=== PATIENT | female | born 1980 | race Caucasian/White ===

== ENCOUNTER 2017-06-26 20:19 | Emergency (ER) | payer OTHER ==
[~2017-06-26] VITALS: Ht 175.3 cm; Wt 58.1 kg
[2017-06-26 21:48] LABS: Basophils # (auto) 0.1 uL; Basophils % (auto) 2.4 % (0.0-2.0); Eosinophils # (auto) 0 uL; Eosinophils % (auto) 1.2 % (0.0-7.0); Hematocrit 36.5 % (36.0-46.0); Lymphocytes # (auto) 1.9 uL; Lymphocytes % (auto) 47.6 % (10.0-50.0); Mean Corpuscular Hemoglobin 30.4 pg (28.0-32.0); Mean Corpuscular Hgb Conc. 32.9 g/dL (32.0-36.0); Mean Corpuscular Volume 92.4 fL (80.0-100.0); Monocytes # (auto) 0.5 uL; Monocytes % (auto) 12.8 % (0.0-12.0); Neutrophils # (auto) 1.4 uL; Platelet Count (auto) 265 10^3/uL (140-450); Red Blood Cells 3.95 10^6/uL (4.0-5.20); Red Cell Distribution Width 16.6 % (11.8-14.3)
[2017-06-26 22:07] LABS: Albumin 4.2 g/dL (3.4-5.0); BUN/Creatinine Ratio 11.8; Potassium 4.1 mmol/L (3.5-5.1)
[2017-06-26 22:08] LABS: Urine Bacteria NONE SEEN /hpf (None Seen); Urine Blood Negative /uL (Negative); Urine Mucus FEW (None Seen); Urine Pregnacy Test Negative (Negative); Urine Specific Gravity 1.015 (1.001-1.035); Urine WBC 1 /hpf (0 - 5)
[2017-06-26 22:09] LABS: Amphetamine Screen, Urine NEGATIVE (NEGATIVE); Barbiturate Scree,Urine NEGATIVE (NEGATIVE); Benzodiazephine Screen, Urine NEGATIVE (NEGATIVE); Cannabinoid Screen, Urine POSITIVE (NEGATIVE); Cocaine Screen, Urine NEGATIVE (NEGATIVE); Opiate Scree,Urine NEGATIVE (NEGATIVE); Phencyclidine Screen, Urine NEGATIVE (NEGATIVE)
[2017-06-26 22:11] LABS: Acetaminophen < 2.0 ug/mL (10-30); Salicylate 4.9 mg/dL (2.8-20.0)
[2017-06-26 22:12] LABS: Bilirubin, Total 0.4 mg/dL (0.2-1.0); Total Protein 8.6 g/dL (6.4-8.2)
[2017-06-27] MEDS ORDERED: SODIUM CHLORIDE 0.9% 1,000 ML IV ONE (01:45)
[2017-06-27] MEDS ORDERED: LORazepam 2MG/ML-1ML VIAL IV ONE (01:45)
[2017-06-27] MEDS ORDERED: LEVETIRACETAM INJ 750 MG in D5W 5% 100 ML IV ONE (01:45)
[2017-06-27] MEDS ORDERED: LEVETIRACETAM 500 MG/5ML INJ IV ONE (01:58)
[2017-06-27 03:15] VITALS: BP 125/80
== END 2017-06-27 03:26 | disposition home or self-care (01) ==
LOC: ER 20:19
DX: R56.9 Unspecified convulsions (principal); R51 Headache; Z91.19 Patient's noncompliance with other medical treatment and regimen
CPT/HCPCS: 36415; 70450; 71046; 80053; 80307; 80320; 80329; 81001; 81025; 85025; 93005; 96365; 96375; 99285; J1953; J2060; J7030; J7060

== ENCOUNTER 2017-11-08 14:49 | Emergency (ER) | payer OTHER ==
[~2017-11-08] VITALS: Ht 175.3 cm; Wt 56.2 kg
[2017-11-08] MEDS ORDERED: SODIUM CHLORIDE 0.9% 1,000 ML IV ONE (15:21)
[2017-11-08] MEDS ORDERED: LORazepam 2MG/ML-1ML VIAL IV ONE (15:30)
[2017-11-08] MEDS ORDERED: LEVETIRACETAM INJ 1,000 MG in D5W 5% 100 ML IV ONE (15:30)
[2017-11-08 16:13] LABS: Basophils # (auto) 0.1 uL; Basophils % (auto) 1.8 % (0.0-2.0); Eosinophils # (auto) 0 uL; Eosinophils % (auto) 1.2 % (0.0-7.0); Hematocrit 30.3 % (36.0-46.0); Hemoglobin 9.9 g/dL (12.2-16.2); Lymphocytes # (auto) 1.3 uL; Lymphocytes % (auto) 34.9 % (10.0-50.0); Mean Corpuscular Hemoglobin 28.5 pg (28.0-32.0); Mean Corpuscular Hgb Conc. 32.8 g/dL (32.0-36.0); Mean Corpuscular Volume 87.1 fL (80.0-100.0); Monocytes # (auto) 0.5 uL; Monocytes % (auto) 14.7 % (0.0-12.0); Neutrophils # (auto) 1.7 uL; Neutrophils % (auto) 47.4 % (37.0-80.0); Nucleated Red Blood Cells % 0.1 %; Platelet Count (auto) 136 10^3/uL (140-450); Red Blood Cells 3.47 10^6/uL (4.0-5.20); White Blood Cell 3.6 10^3/uL (4.4-10.8)
[2017-11-08 16:29] LABS: Red Cell Distribution Width 20.9 % (11.8-14.3)
[2017-11-08 16:49] LABS: Albumin 3.3 g/dL (3.4-5.0); BUN/Creatinine Ratio 9.6; Bilirubin, Total 0.4 mg/dL (0.2-1.0); Calcium 7.9 mg/dL (8.5-10.1); Magnesium 2.6 mg/dL (1.6-2.6); Potassium 3.4 mmol/L (3.5-5.1); Total Protein 7.3 g/dL (6.4-8.2)
[2017-11-08] MEDS ORDERED: ONDANSETRON HCL 4 MG/2 ML VIAL IV ONE (17:00)
[2017-11-08 17:05] LABS: Amphetamine Screen, Urine NEGATIVE (NEGATIVE); Barbiturate Scree,Urine NEGATIVE (NEGATIVE); Benzodiazephine Screen, Urine NEGATIVE (NEGATIVE); Cannabinoid Screen, Urine POSITIVE (NEGATIVE); Cocaine Screen, Urine NEGATIVE (NEGATIVE); Opiate Scree,Urine NEGATIVE (NEGATIVE); Phencyclidine Screen, Urine NEGATIVE (NEGATIVE)
[2017-11-08 17:07] LABS: Urine Bacteria NONE SEEN /hpf (None Seen); Urine Blood Negative /uL (Negative); Urine Hyaline Cast FEW /lpf (0 - 2); Urine Mucus FEW (None Seen); Urine Specific Gravity 1.017 (1.001-1.035); Urine WBC 5 /hpf (0 - 5)
[2017-11-08 17:22] VITALS: BP 113/63
[2017-11-08] MEDS ORDERED: KETOROLAC TROMETH 30 MG/ML 1ML VIAL IV ONE (17:45)
== END 2017-11-08 18:38 | disposition home or self-care (01) ==
LOC: ER 14:49
DX: G40.909 Epilepsy, unspecified, not intractable, without status epilepticus (principal); F10.10 Alcohol abuse, uncomplicated; F12.10 Cannabis abuse, uncomplicated; E87.6 Hypokalemia; E46 Unspecified protein-calorie malnutrition; D64.9 Anemia, unspecified
CPT/HCPCS: 36415; 80053; 80307; 81001; 83735; 85025; 96365; 96375; 99284; J1885; J1953; J2060; J7030; J7060

== ENCOUNTER 2018-09-30 10:49 | Inpatient (IN) | payer OTHER ==
[~2018-09-30] VITALS: Ht 175.3 cm; Wt 64.4 kg
[2018-09-30] VITALS (12 sets, daily range): BP systolic 99–124; BP diastolic 52–86
[2018-09-30 11:29] LABS: Hematocrit 14.2 % (36.0-46.0); Mean Corpuscular Volume 95.5 fL (80.0-100.0); Red Blood Cells 1.49 10^6/uL (4.0-5.20)
[2018-09-30 11:30] LABS: Mean Corpuscular Hemoglobin 30.2 pg (28.0-32.0); Mean Corpuscular Hgb Conc. 31.7 g/dL (32.0-36.0); Platelet Count (auto) 155 10^3/uL (140-450); Red Cell Distribution Width 18.5 % (11.8-14.3); White Blood Cell 12.1 10^3/uL (4.4-10.8)
[2018-09-30 11:39] LABS: Alanine Aminotransferase 65 U/L (13-56); Albumin 2.8 g/dL (3.4-5.0); Anion Gap 22 (5-15); Blood Urea Nitrogen 9 mg/dL (7-18); Calcium 8.1 mg/dL (8.5-10.1); Carbon Dioxide 15 mmol/L (21-32); Chloride 98 mmol/L (98-107); Glucose 102 mg/dL (74-106); Potassium 3.2 mmol/L (3.5-5.1); Sodium 135 mmol/L (136-145)
[2018-09-30 11:44] LABS: Alkaline Phosphatase 479 U/L (45-117); Aspartate Aminotransferase 270 U/L (15-37); BUN/Creatinine Ratio 8.3; Bilirubin, Total 2.5 mg/dL (0.2-1.0); GFR African American 73 mL/min; GFR Non-African American 60 mL/min
[2018-09-30 11:45] LABS: Hemoglobin 4.5 g/dL (12.2-16.2)
[2018-09-30 11:46] LABS: Basophils % (manual) 0 (0.0-2.0); Blast Cells 0; Eosinophils % (manual) 0 (0-7); Metamyelocytes % 0; Myelocytes % 0; Promyelocytes % 0; Reactive Lymphocytes 0
[2018-09-30] MEDS ORDERED: SODIUM CHLORIDE 0.9% 1,000 ML IV ONE (12:00)
[2018-09-30 12:45] LABS: Band Neutrophils % (manual) 4; Lymphocytes % (manual) 12 (10.0-50.0); Monocytes % (manual) 8 (0-12)
[2018-09-30] MEDS ORDERED: ACETAMINOPHEN 325 MG TAB PO ONE (13:45)
[2018-09-30 23:34] LABS: Basophils # (auto) 0 uL; Basophils % (auto) 0.3 % (0.0-2.0); Eosinophils # (auto) 0 uL; Eosinophils % (auto) 0.1 % (0.0-7.0); Hematocrit 25.8 % (36.0-46.0); Hemoglobin 8.8 g/dL (12.2-16.2); Lymphocytes % (auto) 9.4 % (10.0-50.0); Mean Corpuscular Hemoglobin 30.9 pg (28.0-32.0); Mean Corpuscular Hgb Conc. 34.2 g/dL (32.0-36.0); Mean Corpuscular Volume 90.2 fL (80.0-100.0); Monocytes # (auto) 0.8 uL; Monocytes % (auto) 7.3 % (0.0-12.0); Neutrophils # (auto) 8.5 uL; Neutrophils % (auto) 82.9 % (37.0-80.0); Nucleated Red Blood Cells % 0.1 %; Platelet Count (auto) 105 10^3/uL (140-450); Red Blood Cells 2.86 10^6/uL (4.0-5.20); White Blood Cell 10.2 10^3/uL (4.4-10.8)
[2018-10-01] MEDS ORDERED: MORPHINE SULF INJ 2 MG/ML SYRINGE 1ML IV PRN (00:30)
[2018-10-01] MEDS ORDERED: ONDANSETRON HCL 4 MG/2 ML VIAL IV PRN (00:30)
[2018-10-01] MEDS ORDERED: TEMAZEPAM 15 MG CAP PO PRN (00:30)
[2018-10-01] MEDS ORDERED: NITROGLYCERIN 0.4 MG SL TAB SL PRN (00:30)
[2018-10-01] MEDS ORDERED: POTASSIUM CHL 20 Meq TABLET PO ONE (00:30)
[2018-10-01 01:02] LABS: Albumin 2.7 g/dL (3.4-5.0); BUN/Creatinine Ratio 13.1; Calcium 7.4 mg/dL (8.5-10.1); Potassium 3.6 mmol/L (3.5-5.1)
[2018-10-01 01:05] LABS: Bilirubin, Total 4.8 mg/dL (0.2-1.0); Total Protein 5.7 g/dL (6.4-8.2)
[2018-10-01 02:40] VITALS: BP 125/68
--- NOTE | 2018-10-01 02:45 | NUR ---
Telemetry admit from ER TAHIR RITCHIE admitted to Telemetry unit after SBAR received. Patient oriented to Shannen Armenta RN primary RN, unit, room, bed, and unit policies regarding patient care and visiting hours. Patient now on continuous telemetry monitoring, tele box # 44 and telemetry reading on arrival to unit is ST on 100's. Patient weighed by bedscale and encouraged to call if they need something. All questions and concerns addressed, patient verbalized understanding, will continue to monitor Note: []
[2018-10-01] MEDS ORDERED: MEDR5TAB28 PO (02:54)
[2018-10-01] MEDS ORDERED: QUET200T3 PO (02:54)
--- NOTE | 2018-10-01 03:45 | NUR ---
Patient complained of itchiness, no SOB or skin rashes noted. Paged hospitalist, awaiting call back
[2018-10-01 04:08] VITALS: BP 125/68
[2018-10-01 05:00] VITALS: BP 115/72
--- NOTE | 2018-10-01 06:50 | NUR ---
Patient still complained of body itchiness, paged again hospitalist, awaiting call back
--- NOTE | 2018-10-01 07:05 | NUR ---
Hospitalist [place] called back, received new order at this time, read back and acknowledged it, will carry out order
[2018-10-01] MEDS ORDERED: diphenhdrAMINE HCL 25 MG CAP PO ONE (07:15)
[2018-10-01 07:27] LABS: INR 0.99 (0.9-1.15); Partial Thromboplastin Time 24.2 sec (23.64-32.05)
--- NOTE | 2018-10-01 07:48 | NUR ---
Opening Shift Note Assumed care of patient, patient comfortably sleeping. Breath sounds even and unlabored on room air. No S/S of distress/SOB noted. Bed at lowest locked position, bed rails up x2. Will continue to monitor for changes Q1hr and PRN.
[2018-10-01 08:00] VITALS: BP 120/73
[2018-10-01 08:35] VITALS: BP 120/73
--- NOTE | 2018-10-01 08:46 | NUR ---
I faxed clinical information to [facility] including ER notes, H&P, current vitals, labs, xrays and medication list.
--- NOTE | 2018-10-01 08:50 | NUR ---
Patient c/o lower abdominal pain/cramps. Will request pain medication from MD.
--- NOTE | 2018-10-01 09:00 | NUR ---
Provided patient with feminine pads and cleansing baby wipes.
[2018-10-01] MEDS ORDERED: FAMOTIDINE 20 MG TAB PO SCH (10:00)
[2018-10-01] MEDS ORDERED: IBUPROFEN 400 MG TAB PO PRN (11:30)
[2018-10-01 13:07] VITALS: BP 109/54
[2018-10-01 13:19] LABS: Hematocrit 20.9 % (36.0-46.0); Hemoglobin 7.2 g/dL (12.2-16.2)
[2018-10-01 14:32] LABS: Hepatitis A Ab IgM Negative; Hepatitis B Core IgM Negative; Hepatitis B Surface Antigen Negative (Negative); Hepatitis C Antibody Negative (Negative)
[2018-10-01] MEDS ORDERED: SODIUM CHLORIDE 0.9% 1,000 ML IV SCH (15:00)
--- NOTE | 2018-10-01 15:30 | NUR ---
Transfer order faxed to [facility].
--- NOTE | 2018-10-01 16:28 | NUR ---
I called [facility] [phone] to speak with therapeutic case manager, was on hold for more than 10 minutes, no one answered the phone.
--- NOTE | 2018-10-01 17:00 | NUR ---
vital signs; bp 110/62, hr 110, rr19, spo2 98% on room air. T 98.3 no c/o pain .
--- NOTE | 2018-10-01 18:20 | NUR ---
Patient states she tawanna not want to transfer to [place]. Notified Dr. Watson. will pass on to [facility] to notify [place].
--- NOTE | 2018-10-01 18:54 | NUR ---
IV removal PATIENT'S IV CAME OUT, PATIENT C/O LEAKING/ BLEEDING. PAIN AT IV SITE 05/13. IV DC'd with clean sterile technique, catheter fully intact. Pressure dressing applied to site. Patient tolerated well. Will pass on to ABBE[facility] SCHMIDT.
--- NOTE | 2018-10-01 19:29 | NUR ---
OPENING NOTES RECEIVED REPORT FROM DAY SHIFT NURSEGISSELLE. PT IS ALERT, AWAKE AND ORIENTATED X 4 WITH NO S/S OF DISTRESS NOR PAIN. NO S/S OF SOB. BED BRAKES ARE LOCKED AND CALL LIGHT IS WITH IN REACH. BED IS IN LOWEST POSITION AND SIDE RAILS ARE UP X 2. HOB IS 30 DEGREES. PT ASSUMED SHE WAS GOING TO BE DISCHARGED HOME. MADE PATIENT AWARE THAT THE PLAN WAS TO TRANSFER TO [place]. PT REFUSING TRANSFER. WILL MONITOR Q 1HR AND CALL VOICE WRITING REPORTER IN [place].
--- NOTE | 2018-10-01 19:51 | NUR ---
TRANSFER CALLED [facility] AND TOLD BY [facility] THAT AFTER PATIENT REFUSES TRANSFER, FURTHER STAY AT [facility] WILL NOT BE COVERED BY INSURANCE. INFORMED PT, PT VERBALIZED UNDERSTANDING. PT TOLD ME THAT SHE WANTS TO LEAVE. PT GETTING DRESSED AND TOOK TELE MONITOR OFF.
--- NOTE | 2018-10-01 20:33 | NUR ---
[facility] CALLED [facility] TO INFORM PT WANT TO LEAVE [facility] BUENO, TRANSFER MARKETING EXECUTIVE, INFORMED. FURNACE FIRER TO CALL ME BACK.
--- NOTE | 2018-10-01 20:53 | NUR ---
CALL BACK FROM [facility] GROVER, CAR REPAIRER FROM [facility], CALLED BACK AND INFORMED OF PATIENT'S DESIRE TO LEAVE, GROVER MADE AWARE AND INFORMED ME TO HAVE PATIENT FOLLOW UP WITH [facility] IN 3 DAYS. PT MADE OF AWARE OF FOLLOW UP APPT AT [facility]. PT MADE OF AWARE OF RISKS OF LEAVING THE HOSPITAL. VERIFIED THAT NO IV PRESENT AND TELE BOX REMOVED. PT SIGNED AMA.
--- NOTE | 2018-10-01 21:05 | NUR ---
OFF UNIT PT LEFT AMA AND OFF UNIT AT 2105.
== END 2018-10-01 21:03 | disposition left against medical advice (07) | DRG 760 ==
LOC: EDBD 10:49 → ER 10:49 → TELE 10:50 → TELE-CENTR 10-01 02:15
PROVIDERS: ADMIT Nurse Practitioner; ATTEND Internal Medicine
PROC: 30233N1 Transfusion of Nonautologous Red Blood Cells into Peripheral Vein, Percutaneous Approach (ICD-10-PCS; principal; 2018-09-30)
DX: D25.9 Leiomyoma of uterus, unspecified (principal); N17.0 Acute kidney failure with tubular necrosis; N92.1 Excessive and frequent menstruation with irregular cycle; D50.0 Iron deficiency anemia secondary to blood loss (chronic); E87.6 Hypokalemia; K76.0 Fatty (change of) liver, not elsewhere classified; R79.89 Other specified abnormal findings of blood chemistry; R00.0 Tachycardia, unspecified; Z82.49 Family history of ischemic heart disease and other diseases of the circulatory system; Z53.21 Procedure and treatment not carried out due to patient leaving prior to being seen by health care provider
CPT/HCPCS: 36415; 36430; 74176; 76705; 76856; 80053; 80074; 83735; 84484; 84702; 85007; 85014; 85018; 85025; 85027; 85610; 85730; 86850; 86900; 86901; 86920; 93005; 94761; 96360; 96361; 99291; G0378

== ENCOUNTER 2019-09-29 19:32 | Emergency (ER) | payer OTHER ==
[~2019-09-29] VITALS: Ht 175.3 cm; Wt 60.8 kg
[~2019-09-29 19:32] MED LIST: MEDR5TAB28 PO; QUET200T4 PO
[2019-09-29 20:08] VITALS: BP 156/93
== END 2019-09-29 23:30 | disposition left against medical advice (07) ==
LOC: ER 19:32
DX: R10.9 Unspecified abdominal pain (principal); Z53.21 Procedure and treatment not carried out due to patient leaving prior to being seen by health care provider

== ENCOUNTER 2019-10-07 13:15 | Inpatient (IN) | payer OTHER ==
[~2019-10-07] VITALS: Ht 175.3 cm; Wt 72.2 kg
[2019-10-07 13:47] LABS: Red Cell Distribution Width 15.9 % (11.8-14.3)
[2019-10-07 13:49] LABS: Hematocrit 34.5 % (36.0-46.0); Hemoglobin 11.2 g/dL (12.2-16.2); Mean Corpuscular Hemoglobin 33.9 pg (28.0-32.0); Mean Corpuscular Hgb Conc. 32.6 g/dL (32.0-36.0); Platelet Count (auto) 321 10^3/uL (140-450); Red Blood Cells 3.31 10^6/uL (4.0-5.20); White Blood Cell 17.2 10^3/uL (4.4-10.8)
[2019-10-07 13:52] LABS: Band Neutrophils % (manual) 0; Basophils % (manual) 0 (0.0-2.0); Blast Cells 0; Eosinophils % (manual) 0 (0-7); Metamyelocytes % 0; Promyelocytes % 0; Reactive Lymphocytes 0
[2019-10-07 14:08] LABS: Albumin 2.7 g/dL (3.4-5.0); BUN/Creatinine Ratio 6.8; Calcium 9.3 mg/dL (8.5-10.1)
[2019-10-07 14:18] LABS: Lymphocytes % (manual) 10 (10.0-50.0); Monocytes % (manual) 5 (0-12); Myelocytes % 1
[2019-10-07 14:29] LABS: Potassium 2.9 mmol/L (3.5-5.1)
[2019-10-07] MEDS ORDERED: POTASSIUM EFFERVESENT TAB 25 MEQ PO ONE (14:45)
[2019-10-07] MEDS ORDERED: levoFLOXacin 500MG 100 ML IV ONE (16:00)
[2019-10-07] MEDS ORDERED: MORPHINE SULF INJ 2 MG/ML SYRINGE 1ML IV PRN ×3 (16:45→23:45)
[2019-10-07] MEDS ORDERED: NITROGLYCERIN 0.4 MG SL TAB SL PRN ×2 (16:45→23:45)
[2019-10-07] MEDS ORDERED: POTASSIUM CHLORIDE 40 MEQ, LIDOCAINE 1% (LOCAL ANESTH.) 4 ML in SODIUM CHL 0.9% 100 ML IV ONE (16:45)
[2019-10-07] MEDS ORDERED: POTASSIUM CHL 20 Meq TABLET PO ONE (16:45)
[2019-10-07] MEDS ORDERED: QUET200T30 PO (17:17)
[2019-10-07] MEDS ORDERED: MULT-1018 PO (17:17)
[2019-10-07] MEDS ORDERED: FERR-7 PO (17:17)
[2019-10-07 21:22] VITALS: BP 118/64
--- NOTE | 2019-10-07 21:22 | NUR ---
Telemetry admit from ER Patient admitted to Telemetry unit. Patient oriented to primary RN, unit, room, bed, and unit policies regarding patient care and visiting hours. Patient now on continuous telemetry monitoring, tele box # 61 and telemetry reading on arrival to unit is sinus rhythm. Patient weighed by bedscale and encouraged to call if they need something. All questions and concerns addressed, patient verbalized understanding. Safety precautions maintained bed is in lowest position and locked, bed rails 2x. Call light and bedside table are within reach.
[2019-10-07 22:00] VITALS: BP 118/64
[2019-10-07] MEDS: SOD CHL 0.9%/ KCL 40MEQ 1,000 ML IV SCH (23:30)
[2019-10-07] MEDS ORDERED: DOXYCYCLINE 100MG/250ML 250 ML IV SCH (23:30)
[2019-10-07] MEDS ORDERED: HYDROcodone-ACET 5/325MG TAB PO PRN (23:45)
[2019-10-07] MEDS ORDERED: ALUM & MAG HYDROX-SIMETH LIQ(MAALOX) 30 ML PO PRN (23:45)
[2019-10-07] MEDS ORDERED: ONDANSETRON HCL 4 MG/2 ML VIAL IV PRN (23:45)
[2019-10-07] MEDS ORDERED: LORazepam 0.5 MG TAB PO PRN (23:45)
[2019-10-07] MEDS ORDERED: DOCUSATE SOD 100 MG CAP PO PRN (23:45)
[2019-10-08] MEDS ORDERED: ACETAMINOPHEN 325 MG TAB PO PRN (00:15)
[2019-10-08] MEDS ORDERED: TEMAZEPAM 15 MG CAP PO PRN (00:15)
[2019-10-08 05:00] VITALS: BP 98/61
[2019-10-08] MEDS ORDERED: CLINDAMYCIN 600MG IV 50 ML IV SCH (06:00)
[2019-10-08 06:41] LABS: White Blood Cell 17.5 10^3/uL (4.4-10.8)
[2019-10-08 06:44] LABS: Hematocrit 33.3 % (36.0-46.0); Hemoglobin 10.8 g/dL (12.2-16.2); Mean Corpuscular Hemoglobin 33.9 pg (28.0-32.0); Mean Corpuscular Hgb Conc. 32.3 g/dL (32.0-36.0); Platelet Count (auto) 274 10^3/uL (140-450); Red Blood Cells 3.17 10^6/uL (4.0-5.20); Red Cell Distribution Width 16.3 % (11.8-14.3)
[2019-10-08 06:48] LABS: Basophils % (manual) 0 (0.0-2.0); Blast Cells 0; Eosinophils % (manual) 0 (0-7); Myelocytes % 0; Promyelocytes % 0; Reactive Lymphocytes 0
[2019-10-08 07:01] LABS: Band Neutrophils % (manual) 2; Lymphocytes % (manual) 2 (10.0-50.0); Metamyelocytes % 1; Monocytes % (manual) 7 (0-12)
[2019-10-08 07:02] LABS: Triglycerides 352 mg/dL (< 150)
[2019-10-08 07:06] LABS: Cholesterol 323 mg/dL (< 200); HDL Cholesterol 7 mg/dL (40-59); LDL Cholesterol 285 mg/dL (< 100)
[2019-10-08 07:07] LABS: Albumin 2.2 g/dL (3.4-5.0); Calcium 8.6 mg/dL (8.5-10.1); Magnesium 2.3 mg/dL (1.6-2.6)
[2019-10-08 07:10] LABS: Bilirubin, Total 5.3 mg/dL (0.2-1.0); Phosphorus 1.6 mg/dL (2.5-4.90); Total Protein 6.8 g/dL (6.4-8.2)
--- NOTE | 2019-10-08 07:18 | NUR ---
End of Shift Note Endorsed care to dayshift RN. At this time patient has no s/s of distress or SOB.
[2019-10-08 07:19] LABS: Urine Bacteria FEW /hpf (None Seen); Urine Mucus FEW (None Seen); Urine WBC 1 /hpf (0 - 5)
[2019-10-08 07:20] LABS: Urine Blood Negative /uL (Negative); Urine Specific Gravity 1.019 (1.001-1.035)
[2019-10-08 07:36] LABS: Amphetamine Screen, Urine NEGATIVE (NEGATIVE); Barbiturate Scree,Urine NEGATIVE (NEGATIVE); Benzodiazephine Screen, Urine NEGATIVE (NEGATIVE); Cannabinoid Screen, Urine NEGATIVE (NEGATIVE); Opiate Scree,Urine NEGATIVE (NEGATIVE)
[2019-10-08 07:40] LABS: Alcohol, Urine < 3.0 mg/dL (0-10); Cocaine Screen, Urine NEGATIVE (NEGATIVE); Phencyclidine Screen, Urine NEGATIVE (NEGATIVE)
[2019-10-08 09:00] VITALS: BP 102/41
[2019-10-08] MEDS: PANTOPRAZOLE 40 MG/10 ML VIAL INJ IV SCH (09:44)
[2019-10-08] MEDS: ENOXAPARIN SOD 40 MG/0.4 ML SYRINGE SC SCH (09:44)
[2019-10-08] MEDS ORDERED: POTASSIUM CHL 20 Meq TABLET PO SCH (10:00)
[2019-10-08 11:58] VITALS: BP 114/77
[2019-10-08] MEDS: SOD CHL 0.9%/ KCL 40MEQ 1,000 ML IV SCH (12:50)
[2019-10-08] MEDS ORDERED: levoFLOXacin 500MG 100 ML IV ONE (13:15)
[2019-10-08] MEDS: SODIUM CHLORIDE 0.9% 1,000 ML IV SCH (13:15)
[2019-10-08] MEDS: ACETAMINOPHEN 325 MG TAB PO PRN ×2 (13:22→21:32)
[2019-10-08] MEDS: metroNIDAZOLE 500MG/100ML 100 ML IV SCH ×2 (14:00→21:32)
[2019-10-08 17:00] VITALS: BP 108/75
[2019-10-08] MEDS ORDERED: FERROUS SULFATE 325 MG TAB PO SCH (18:00)
[2019-10-08 22:00] VITALS: BP 111/78
[2019-10-08] MEDS ORDERED: QUEtiapine FUMARATE 100 MG TAB PO SCH (22:00)
[2019-10-08] MEDS ORDERED: QUEtiapine FUMARATE 100 MG TAB PO ONE (23:45)
[2019-10-09] MEDS: SODIUM CHLORIDE 0.9% 1,000 ML IV SCH (02:52)
[2019-10-09 05:00] VITALS: BP 118/72
[2019-10-09] MEDS: metroNIDAZOLE 500MG/100ML 100 ML IV SCH (05:55)
[2019-10-09 06:05] LABS: Hematocrit 31.8 % (36.0-46.0); Hemoglobin 10.3 g/dL (12.2-16.2); Mean Corpuscular Hemoglobin 34.4 pg (28.0-32.0); Mean Corpuscular Hgb Conc. 32.4 g/dL (32.0-36.0); Mean Corpuscular Volume 106.3 fL (80.0-100.0); Platelet Count (auto) 288 10^3/uL (140-450); Red Blood Cells 2.99 10^6/uL (4.0-5.20); White Blood Cell 16.5 10^3/uL (4.4-10.8)
[2019-10-09 06:16] LABS: Basophils % (manual) 0 (0.0-2.0); Blast Cells 0; Eosinophils % (manual) 0 (0-7); Metamyelocytes % 0; Myelocytes % 0; Promyelocytes % 0; Reactive Lymphocytes 0
[2019-10-09 06:21] LABS: Potassium 4.6 mmol/L (3.5-5.1)
[2019-10-09 06:29] LABS: Albumin 2.2 g/dL (3.4-5.0); BUN/Creatinine Ratio 10.4; Bilirubin, Total 4.6 mg/dL (0.2-1.0); Calcium 8.5 mg/dL (8.5-10.1); Total Protein 6.8 g/dL (6.4-8.2)
[2019-10-09 07:01] LABS: Band Neutrophils % (manual) 4; Lymphocytes % (manual) 14 (10.0-50.0); Monocytes % (manual) 3 (0-12)
--- NOTE | 2019-10-09 07:21 | NUR ---
End of Shift Note Endorsed care to dayshift RN. At this time patient has no s/s of distress or SOB.
[2019-10-09 09:00] VITALS: BP 117/74
[2019-10-09] MEDS ORDERED: levoFLOXacin 500MG 100 ML IV SCH (10:00)
[2019-10-09] MEDS: PANTOPRAZOLE 40 MG/10 ML VIAL INJ IV SCH (10:56)
[2019-10-09] MEDS: ENOXAPARIN SOD 40 MG/0.4 ML SYRINGE SC SCH (10:57)
[2019-10-09 12:43] VITALS: BP 106/80
[2019-10-09] MEDS ORDERED: LEVOTHYROXINE SODIUM 50 MCG TAB PO ONE (14:15)
[2019-10-09] MEDS ORDERED: SODIUM CHLORIDE 0.9% 1,000 ML IV SCH (14:30)
--- NOTE | 2019-10-09 14:54 | NUR ---
AMA Note TAHIR RITCHIE states they want to leave the hospital Against Medical Advice (AMA). Patient encouraged to stay for further treatment/stabilization. DR SHAIKH LAIRD notified of patient's wishes. Patient advised of the risks and benefits of leaving AMA. Patient verbalized understanding. Patient encouraged to return to the ER if symptoms do not improve or worsen.
[2019-10-10] MEDS ORDERED: LEVOTHYROXINE SODIUM 50 MCG TAB PO SCH (07:00)
[2019-10-10 09:44] LABS: Hepatitis B Surface Antibody Positive
[2019-10-10 10:21] LABS: Hepatitis A Total Antibody Negative
[2019-10-10 12:18] LABS: Hepatitis B Core Total AB Negative
[2019-10-10 12:19] LABS: Hepatitis B Surface Antigen Negative (Negative); Hepatitis C Antibody Negative (Negative)
== END 2019-10-09 15:00 | disposition left against medical advice (07) | DRG 871 ==
LOC: ER 13:15 → TELE 13:16 → TELE-WESTW 21:21
PROVIDERS: ADMIT Hospitalist; ATTEND Internal Medicine
DX: A41.9 Sepsis, unspecified organism (principal); K85.20 Alcohol induced acute pancreatitis without necrosis or infection; E43 Unspecified severe protein-calorie malnutrition; N39.0 Urinary tract infection, site not specified; F17.210 Nicotine dependence, cigarettes, uncomplicated; D64.9 Anemia, unspecified; D72.829 Elevated white blood cell count, unspecified; E87.6 Hypokalemia; K21.9 Gastro-esophageal reflux disease without esophagitis; D63.8 Anemia in other chronic diseases classified elsewhere; F32.9 Major depressive disorder, single episode, unspecified; M79.7 Fibromyalgia; Z53.29 Procedure and treatment not carried out because of patient's decision for other reasons; Z68.23 Body mass index [BMI] 23.0-23.9, adult; Z90.710 Acquired absence of both cervix and uterus; Z88.0 Allergy status to penicillin
CPT/HCPCS: 36415; 71045; 74176; 76705; 76856; 78226; 80053; 80061; 80307; 81001; 81025; 82150; 83036; 83690; 83735; 84100; 84132; 84443; 84484; 84702; 85007; 85027; 85652; 86704; 86706; 86708; 86803; 87040; 87086; 87340; 96365; 96367; C9113; G0378; J1956; J2001; J3490